=== PATIENT | male | born 1980 | race Caucasian/White ===

== ENCOUNTER 2024-11-11 18:17 | Emergency (ER) | payer BC, SELFPAY ==
[2024-11-11 18:19] VITALS: BP 129/103; PULSE 86; RESP 19; TEMP 35.8; O2SAT 99
--- NOTE | 2024-11-11 18:59 | EX.ED.DYSGE1 ---
HPI <NATE Gallego - Last Filed: 11/11/24 22:22> History of Present Illness Chief Complaint: Abd Pain Narrative Narrative: 44 old male with no past medical history states he was sitting in his work break room today when he suddenly developed room spinning lasting about a minute. He had mild associated nausea and blurred vision and all symptoms resolved together. This has occurred several times throughout the day and he noticed it especially when bending down. He had similar symptoms in the past but was not evaluated. He also reports a few days of bilateral lower abdominal discomfort. He said no fever or chills. He has normal p.o. intake and no vomiting. He had 1 episode of loose stools but no melena or hematochezia. No urinary symptoms. No history of abdominal surgery. He does not smoke or drink alcohol frequently. PFSH <NATE Gallgeo - Last Filed: 11/11/24 22:22> PFSH Medical History no medical history Home Medications ?Medication ?Instructions ?Recorded ?Last Taken ?Type meclizine 25 mg tablet 25 mg PO 4X/DAY PRN PRN Dizziness 11/11/24 Unknown Rx #20 tabs Allergy/AdvReac Type Severity Reaction Status Date / Time No Known Allergies Allergy Verified 11/11/24 18:19 Family History no significant family his Surgical History no surgical history Social History Smoking Status: Never smoker ROS <NATE Gallego Last Filed: 11/11/24 22:22> ROS ED ROS Narrative Constitutional: Negative for fever, chills, malaise. CVS: Negative for palpitations, chest pain, syncope. Respiratory: Negative for shortness of breath, cough. GI: Positive for abdominal pain, diarrhea. Negative for vomiting, melena, hematochezia. : Negative for dysuria, hematuria or frequency. Neuro: Negative for headache. EXAM <NATE Gallego Last Filed: 11/11/24 22:22> Physical Exam Narrative Exam Narrative: CONST: Patient sitting in no acute distress. EYES: Normal inspection. PERRL, EOMI, 2 beats of leftward horizontal nystagmus. ENT: Normal inspection, moist mucous membranes. TMs clear. NECK: Normal inspection. RESP: No respiratory distress, CTAB. CVS: Regular rate and rhythm, no murmur, no gallop. ABD: Soft with bilateral lower quadrant tenderness, no guarding or rebound, nondistended. SKIN: Color normal, no rash, warm, dry, intact. EXTREMITIES: Normal appearance, no pedal edema. NEURO: Alert and answering questions appropriately. Alert and oriented, EOMI, visual garcía intact, face symmetric, no upper or lower extremity drift, normal [id number] and [id number]-[id number], normal sensation, no aphasia or dysarthria, no extinction. NIH is 0. PSYCH: Normal affect. Const Vital Signs: 11/11/24 18:19 11/11/24 20:18 11/11/24 21:00 Temperature 96.4 F L 98.4 F Temperature Source Temporal Pulse Rate 86 84 78 Respiratory Rate 19 H 18 14 Blood Pressure 129/103 H 114/73 117/64 Blood Pressure Mean 111 86 81 Pulse Ox 99 98 99 Oxygen Delivery Method Room Air Room Air <Dr. Brendan Roque DO - Last Filed: 11/11/24 19:54> Physical Exam Const Vital Signs: 11/11/24 18:19 11/11/24 20:18 11/11/24 21:00 Temperature 96.4 F L 98.4 F Temperature Source Temporal Pulse Rate 86 84 78 Respiratory Rate 19 H 18 14 Blood Pressure 129/103 H 114/73 117/64 Blood Pressure Mean 111 86 81 Pulse Ox 99 98 99 Oxygen Delivery Method Room Air Room Air [facility] <NATE Gallego - Last Filed: 11/11/24 22:22> [facility] Narrative Medical decision making narrative: Differential includes but not limited to peripheral versus central vertigo, viral syndrome, intra-abdominal process such as diverticulitis 44-year-old male reports brief episodes of room spinning sometimes triggered by movement. It sounds consistent with BPPV. He appears well and nontoxic. Stable vital signs. He has a normal neurological exam. There is no truncal ataxia, negative test of skew, and his NIH is 0 so I suspect this is peripheral. His symptoms improved after meclizine and I prescribed this as needed for home. I do not think a CT brain scan is indicated. Regarding his abdominal pain lab workup and urinalysis is negative. His exam is benign so a CT is not indicated. I discussed return precautions and he was discharged in stable condition. ED attending note: I evaluated the patient in conjunction with the MISHEL. I agree with his/her statements and above findings. I have personally performed a face to face assessment of the patient and have reviewed the MISHEL Note. I performed a substantive portion of the visit including all aspects of the following. I personally saw the patient performed chart review, physical exam, reviewed labs, imaging (if obtained), and formulated a treatment and management plan. History as above: Patient notes he said loose stools for last 2 to 3 days. Exam: Alert and oriented x3, neuro exam at baseline, cranial nerves II through XII are intact. No pain with extraocular muscle movement. There is negative test of skew. 5 of 5 strength in upper and lower extremities in flexion extension. Intact sensation to light touch in upper and lower extremity dermatomes. No truncal or extremity ataxia. No dysdiadochokinesia. Normal gait. 2+ reflexes in upper and lower extremities. No meningeal signs. Negative Babinski. NIH of 0. Abdomen soft nontender, no peritoneal signs. MDM/plan: Will check an EKG to rule out arrhythmia, basic labs rule out signs of anemia or significant electrolyte disturbance. The patient's neurologic exam was intact with no sign of vertical or rotatory nystagmus, no sign of ataxia, no sign of focal neurologic deficit. Consider obtaining a CT scan of the head although this was not indicated given his asymptomatic nonfocal exam. Also consider obtaining a CT scan of the patient abdomen pelvis or without this was not indicated given the benign nature of abdominal exam likely white blood cell count and lack of symptoms at this time. This note was generated with [employer] dictation software. It may contain incorrect words, spelling, and punctuation that were not noted in review of the chart prior to signing. Lab Data Labs: Laboratory Results - last 24 hr 11/11/24 11/11/24 19:26 20:05 WBC 9.9 RBC 6.19 Hgb 12.6 L Hct 40.2 MCV 64.9 L MCH 20.4 L MCHC 31.3 L RDW Std Deviation 33.0 L RDW Coeff of Thom 15.5 H Plt Count 289 MPV 9.9 Immature Gran % (Auto) 0.200 Neut % (Auto) 60.6 Lymph % (Auto) 32.5 [place] % (Auto) 5.6 Eos % (Auto) 0.6 Baso % (Auto) 0.5 Absolute Neuts (auto) 6.0 Absolute Lymphs (auto) 3.23 Nucleated RBC % 0 Sodium 136 Potassium 3.7 Chloride 100 Carbon Dioxide 23.7 Anion Gap 12 BUN 18 Creatinine 1.10 Est GFR (MDRD) Non-Af 84 BUN/Creatinine Ratio 16.4 Glucose 94 Calcium 8.9 Total Bilirubin 0.45 Direct Bilirubin 0.19 AST 22 ALT 23 Alkaline Phosphatase 101 Total Protein 7.5 Albumin 4.2 Globulin 3.2 Lipase 17 Urine Color Yellow Urine Clarity Clear Urine pH 5.0 Ur Specific [place] 1.020 Urine Protein 30 H Urine Glucose (UA) Normal Urine Ketones Negative Urine Occult Blood Negative Urine Nitrite Negative Urine Bilirubin Negative Urine Urobilinogen Normal Ur Leukocyte Esterase Negative Urine RBC 0 SEEN Urine WBC 0 SEEN Ur Squamous Epith Cells 0 SEEN Urine Bacteria 0 SEEN Urine Mucus 0 SEEN <Dr. Brendan Roque, DO - Last Filed: 11/11/24 19:54> MDM MDM Narrative Medical decision making narrative: ED attending note: I evaluated the patient in conjunction with the MISHEL. I agree with his/her statements and above findings. I have personally performed a face to face assessment of the patient and have reviewed the MISHEL Note. I performed a substantive portion of the visit including all aspects of the following. I personally saw the patient performed chart review, physical exam, reviewed labs, imaging (if obtained), and formulated a treatment and management plan. History as above: Patient notes he said loose stools for last 2 to 3 days. Exam: Alert and oriented x3, neuro exam at baseline, cranial nerves II through XII are intact. No pain with extraocular muscle movement. There is negative test of skew. 5 of 5 strength in upper and lower extremities in flexion extension. Intact sensation to light touch in upper and lower extremity dermatomes. No truncal or extremity ataxia. No dysdiadochokinesia. Normal gait. 2+ reflexes in upper and lower extremities. No meningeal signs. Negative Babinski. NIH of 0. Abdomen soft nontender, no peritoneal signs. MDM/plan: Will check an EKG to rule out arrhythmia, basic labs rule out signs of anemia or significant electrolyte disturbance. The patient's neurologic exam was intact with no sign of vertical or rotatory nystagmus, no sign of ataxia, no sign of focal neurologic deficit. Consider obtaining a CT scan of the head although this was not indicated given his asymptomatic nonfocal exam. Also consider obtaining a CT scan of the patient abdomen pelvis or without this was not indicated given the benign nature of abdominal exam likely white blood cell count and lack of symptoms at this time. This note was generated with [employer] dictation software. It may contain incorrect words, spelling, and punctuation that were not noted in review of the chart prior to signing. Lab Data Labs: Laboratory Results - last 24 hr 11/11/24 11/11/24 19:26 20:05 WBC 9.9 RBC 6.19 Hgb 12.6 L Hct 40.2 MCV 64.9 L MCH 20.4 L MCHC 31.3 L RDW Std Deviation 33.0 L RDW Coeff of Thom 15.5 H Plt Count 289 MPV 9.9 Immature Gran % (Auto) 0.200 Neut % (Auto) 60.6 Lymph % (Auto) 32.5 [place] % (Auto) 5.6 Eos % (Auto) 0.6 Baso % (Auto) 0.5 Absolute Neuts (auto) 6.0 Absolute Lymphs (auto) 3.23 Nucleated RBC % 0 Sodium 136 Potassium 3.7 Chloride 100 Carbon Dioxide 23.7 Anion Gap 12 BUN 18 Creatinine 1.10 Est GFR (MDRD) Non-Af 84 BUN/Creatinine Ratio 16.4 Glucose 94 Calcium 8.9 Total Bilirubin 0.45 Direct Bilirubin 0.19 AST 22 ALT 23 Alkaline Phosphatase 101 Total Protein 7.5 Albumin 4.2 Globulin 3.2 Lipase 17 Urine Color Yellow Urine Clarity Clear Urine pH 5.0 Ur Specific [place] 1.020 Urine Protein 30 H Urine Glucose (UA) Normal Urine Ketones Negative Urine Occult Blood Negative Urine Nitrite Negative Urine Bilirubin Negative Urine Urobilinogen Normal Ur Leukocyte Esterase Negative Urine RBC 0 SEEN Urine WBC 0 SEEN Ur Squamous Epith Cells 0 SEEN Urine Bacteria 0 SEEN Urine Mucus 0 SEEN Discharge Plan Triage Chief Complaint: Abd Pain ED Midlevel Provider: Nayana Thomas ED Provider: Brendan Roque Dx/Rx/DC Orders Clinical Impression: Benign paroxysmal positional vertigo, Abdominal pain Instructions: Abdominal Pain, BPPV Prescriptions: New meclizine 25 mg tablet 25 mg PO 4X/DAY PRN PRN (Reason: Dizziness) Qty: 20 0RF Primary Care Provider: Jarrod Blum Referrals: Jarrod Blum MD [Primary Care Provider] - Activity Restrictions/Additional Instructions: Your test today are all normal and reassuring. I am not sure what is causing your abdominal pain but recommend Tylenol ibuprofen and follow-up with your primary care doctor. If symptoms worsen come back to the emergency room. I prescribed meclizine which you take as needed for room spinning or vertigo. Print Language: Maltese Disposition Disposition: Home, Self Care Discharge Date/Time: 11/11/24 21:02
--- NOTE | 2024-11-11 19:27 | EKG12_ITS ---
Test Reason : ABD. PAIN Blood Pressure : */* mmHG Vent. Rate : 69 BPM Atrial Rate : 69 BPM P-R Int : 198 ms QRS Dur : 72 ms QT Int : 386 ms P-R-T Axes : 37 3 12 degrees QTcB Int : 413 ms Normal sinus rhythm Normal ECG Confirmed by MELVIN ELIZABETH, CHUCKIE ([id number]), editor magazine YARELY MISHRA ([id number]) on 11/12/2024 8:10:19 AM Referred By: TEMO Confirmed By: CHUCKIE CHARLES MD
--- NOTE | 2024-11-11 19:32 | PCA ---
no old ekg
[2024-11-11 19:35] LABS: Absolute Lymphocyte Count 3.23 X10^3/uL (0.83-4.51); Basophil# 0.05 X10^3/uL; Basophil% 0.5 % (0-1); Eosinophil# 0.06 X10^3/uL; Eosinophils% 0.6 % (0-5); Hematocrit 40.2 % (40-54); Hemoglobin 12.6 g/dL (13.0-16.5); Lymphocyte # 3.23 X10^3/ul (0.83-4.51); Lymphocyte % 32.5 % (19-41); Mean Corp Hgb Conc 31.3 g/dL (32-36); Mean Corpuscular Hgb 20.4 pg (27.0-32.0); Mean Corpuscular Volume 64.9 fL (80-94); Mean Platelet Vol. 9.9 fl (6.2-12.0); Monocyte# 0.56 X10^3/uL; Monocyte% 5.6 % (0-10); NRBC Flagged by Analyzer 0 % (0-5); Neutrophil # 6.02 X10^3/uL (2.7-7.7); Neutrophil % 60.6 % (47-70); Platelet Count 289 K/mm3 (150-450); RBC Distribution Width CV 15.5 % (11.6-14.6); Red Blood Count 6.19 M/mm3 (4.6-6.2); White Blood Count 9.9 K/mm3 (4.4-11.0)
[2024-11-11] MEDS: 0.9% Normal Saline (500mL Bag) 500 ML 999 ML IV (19:36)
[2024-11-11] MEDS: Meclizine HCl 25 MG Tablet PO (19:37)
[2024-11-11 20:17] LABS: Bacteria 0 SEEN /hpf (None Seen); Mucous, Urine 0 SEEN /hpf (<or=2+); Red Blood Cells-Urine 0 SEEN /hpf (0-5); Squamous Epithelial Cells - UA 0 SEEN /hpf (0-5); White Blood Cells 0 SEEN /hpf (0-5)
[2024-11-11 20:18] VITALS: BP 114/73; PULSE 84; RESP 18; O2SAT 98
[2024-11-11 20:21] LABS: Color, Urine Yellow (Yellow); Glucose, Dipstick Normal (Normal); Ketone-Dipstick Negative (Negative); Leukocyte Esterase-Dipstick Negative /ul (Negative); Nitrite-Dipstick Negative (Negative); Occult Blood-Urine Negative /ul (Negative); Protein-Dipstick 30 mg/dl (Negative); Urine Bilirubin Dipstick Negative (Negative); Urine Clarity Clear (Clear); Urine Urobilinogen Normal (Normal)
[2024-11-11 20:22] LABS: AST(SGOT) 22 U/L (<=37); Alanine Aminotransfer ALT/SGPT 23 U/L (<=46); Albumin, Serum 4.2 g/dL (3.5-5.0); Alkaline Phosphatase 101 U/L (40-129); Anion Gap 12 (5-15); BUN 18 mg/dL (4-19); BUN/Creat Ratio 16.4 RATIO (10-20); Bilirubin, Direct 0.19 mg/dL (0.00-0.30); Calcium,Total 8.9 mg/dL (7.6-11.0); Carbon Dioxide 23.7 mmol/L (21.0-32.0); Chloride 100 mmol/L (98-108); EST Glomerular Filtration Rate 84 (>60); Globulin 3.2 g/dL (2.2-4.2); Glucose 94 mg/dL (70-99); Lipase 17 U/L (13-75); Potassium 3.7 mmol/L (3.3-5.1); Protein, Total 7.5 g/dL (5.9-8.4); Sodium Level 136 mmol/L (133-145); Total Bilirubin 0.45 mg/dL (0.00-1.30)
[2024-11-11 21:00] VITALS: BP 117/64; PULSE 78; RESP 14; TEMP 36.9; O2SAT 99
== END 2024-11-11 21:02 | disposition home or self-care (01) ==
PROVIDERS: Physician Assistant; Emergency Provider Emergency Medicine; PCP Family Medicine; Visit Provider Emergency Medicine
DX: R10.31 Right lower quadrant pain (principal); R10.32 Left lower quadrant pain; H81.10 Benign paroxysmal vertigo, unspecified ear
CPT/HCPCS: 80048; 80076; 81001; 83690; 85025; 93005; 99282; A4216